=== PATIENT | female | born 1940 | race Caucasian/White ===

== ENCOUNTER 2019-06-10 05:46 | Inpatient (IN) ==
[2019-06-10] MEDS ORDERED: VANCOMYCIN 1,000 MG VIAL ONE (05:55)
[2019-06-10] MEDS ORDERED: ceFAZolin 1,000 MG VIAL ONE (05:55)
[2019-06-10] MEDS ORDERED: FAMOTIDINE 20 MG TABLET PO ONE (06:00)
[2019-06-10] MEDS ORDERED: VANCOMYCIN INJ 1,000 MG in SODIUM CHLORIDE 0.9% 250 ML IV ONE (06:00)
[2019-06-10] MEDS ORDERED: ceFAZolin 2,000 MG in SYRINGE 1 EACH IV ONE (06:00)
[2019-06-10] MEDS ORDERED: LACTATED RINGERS 1,000 ML IV SCH (06:25)
[2019-06-10] MEDS ORDERED: EPINEPHrine 1 MG/ML VIAL ONE (06:35)
[2019-06-10] MEDS ORDERED: BUPIVACAINE 0.5% 50 ML VIAL ONE (06:35)
[2019-06-10] MEDS ORDERED: MIDAZOLAM 2 MG/2 ML VIAL ONE (06:35)
[2019-06-10] MEDS ORDERED: DEXAMETHASONE 4 MG/1 ML VIAL ONE (06:35)
[2019-06-10] MEDS ORDERED: fentaNYL 100 MCG/2 ML VIAL ONE (06:35)
[2019-06-10] MEDS ORDERED: PROPOFOL 500 MG/50 ML BOTTLE IV ONE (06:36)
[2019-06-10] MEDS ORDERED: MORPHINE 10 MG/10 ML VIAL ONE (06:36)
[2019-06-10] MEDS ORDERED: BACITRACIN OINT 0.9 GM PACK TOP ONE (06:36)
[2019-06-10] MEDS ORDERED: TRANEXAMIC ACID 1,000 MG/10 ML VIAL ONE (06:36)
[2019-06-10] MEDS ORDERED: oxyCODONE IR 5 MG TABLET PO PRN ×2 (08:33)
[2019-06-10] MEDS ORDERED: ONDANSETRON 4 MG/2 ML VIAL IV PRN (08:33)
[2019-06-10] MEDS ORDERED: MORPHINE 4 MG/1 ML VIAL IV PRN (08:33)
[2019-06-10] MEDS ORDERED: diphenhydrAMINE CAP 25 MG CAPSULE PO PRN (08:33)
[2019-06-10] MEDS ORDERED: ZALEPLON 5 MG CAPSULE PO PRN (08:33)
[2019-06-10] MEDS ORDERED: MAGNESIUM HYDROXIDE SUSP 30 ML UDCUP PO PRN (08:33)
[2019-06-10] MEDS ORDERED: BUPIVACAINE SPINAL 0.75% 2 ML AMP SPINAL ONE (09:04)
[2019-06-10] MEDS ORDERED: LACTATED RINGERS 1,000 ML IV ONE (09:40)
[2019-06-10 11:01] LABS: Basophils % 0.2 % (0.0-0.8); Eosinophils % 0.3 % (0.00-10.9); Hemoglobin 13.3 GM/DL (12.0-16.0); Immature Granulocytes % 0.3 %; Immature Granulocytes Absolute 0.03 #; Lymphocytes # 1.1 10*3/uL (1.4-4.0); Lymphocytes % 12.1 % (21.3-54.2); Mean Corpuscular HGB Conc 34.1 GM/DL (32-36); Mean Corpuscular Volume 93.1 FL (87-102); Mean Platelet Volume 11.2 FL (9.6-12.0); Neutrophils % 85.1 % (38.7-73.9); Platelet Count 202 T/CUMM (130-400); Red Blood Count 4.19 MC/CUMM (3.8-5.5); Red Cell Distribution Width 12.8 % (9.3-17.3); White Blood Count 8.8 T/CUMM (4-12)
[2019-06-10] MEDS: KETOROLAC 15 MG/1 ML VIAL IV SCH ×3 (11:04→22:57)
[2019-06-10 11:33] LABS: Calcium 8.4 MG/DL (8.5-10.1); Osmolality,Calculated 277.5 MOS/KG (273-304)
[2019-06-10] MEDS: LACTATED RINGERS 1,000 ML IV SCH ×2 (11:36→23:14)
[2019-06-10] MEDS: ESTRADIOL 1 MG TABLET PO SCH (12:57)
[2019-06-10] MEDS: DOCUSATE SODIUM 100 MG CAPSULE PO SCH ×2 (12:58→21:28)
[2019-06-10] MEDS: PANTOPRAZOLE 40 MG TABLET PO SCH (12:59)
[2019-06-10] MEDS: ACETAMINOPHEN 500 MG TABLET PO SCH ×2 (12:59→22:15)
[2019-06-10] MEDS: MORPHINE 4 MG/1 ML VIAL IV PRN (13:00)
[2019-06-10] MEDS: ceFAZolin 2,000 MG in SYRINGE 1 EACH IV SCH ×2 (13:25→22:52)
[2019-06-10] MEDS: SIMVASTATIN 20 MG TABLET PO SCH (21:28)
[2019-06-10] MEDS: FONDAPARINUX 2.5 MG/0.5 ML SYRINGE SUBCUT SCH (21:29)
[2019-06-11] MEDS: KETOROLAC 15 MG/1 ML VIAL IV SCH ×2 (05:26→07:25)
[2019-06-11 05:53] LABS: Basophils % 0.1 % (0.0-0.8); Eosinophils % 0.2 % (0.00-10.9); Hematocrit 30.3 VOL% (35.7-47.0); Hemoglobin 10.3 GM/DL (12.0-16.0); Immature Granulocytes % 0.4 %; Immature Granulocytes Absolute 0.05 #; Lymphocytes # 1.8 10*3/uL (1.4-4.0); Lymphocytes % 14.3 % (21.3-54.2); Mean Corpuscular Volume 92.9 FL (87-102); Mean Platelet Volume 11.8 FL (9.6-12.0); Monocytes % 7.2 % (1.7-12.7); Neutrophils % 77.8 % (38.7-73.9); Platelet Count 181 T/CUMM (130-400); Red Blood Count 3.26 MC/CUMM (3.8-5.5); Red Cell Distribution Width 12.6 % (9.3-17.3); White Blood Count 12.3 T/CUMM (4-12)
[2019-06-11 06:09] LABS: Calcium 7.8 MG/DL (8.5-10.1); Osmolality,Calculated 275.8 MOS/KG (273-304)
[2019-06-11] MEDS: ACETAMINOPHEN 500 MG TABLET PO SCH (07:24)
[2019-06-11] MEDS: hydroCHLOROthiazide 12.5 MG CAPSULE PO SCH (09:00)
[2019-06-11] MEDS: amLODIPine 5 MG TABLET PO SCH (09:00)
[2019-06-11] MEDS: PANTOPRAZOLE 40 MG TABLET PO SCH (09:00)
[2019-06-11] MEDS: ESTRADIOL 1 MG TABLET PO SCH (09:00)
[2019-06-11] MEDS: DOCUSATE SODIUM 100 MG CAPSULE PO SCH ×2 (09:01→21:01)
[2019-06-11] MEDS: MORPHINE 4 MG/1 ML VIAL IV PRN ×2 (09:01→13:40)
[2019-06-11] MEDS: LOSARTAN 50 MG TABLET PO SCH (09:02)
[2019-06-11] MEDS: CELECOXIB 200 MG CAPSULE PO SCH (15:33)
[2019-06-11] MEDS: NF- (Mirabegron [Myrbetriq] 50 MG) PO SCH (18:18)
[2019-06-11] MEDS: FONDAPARINUX 2.5 MG/0.5 ML SYRINGE SUBCUT SCH (21:01)
[2019-06-11] MEDS: SIMVASTATIN 20 MG TABLET PO SCH (21:01)
[2019-06-11] MEDS: LACTATED RINGERS 1,000 ML IV SCH (22:45)
[2019-06-12 07:06] LABS: Basophils # 0.1 10*3/uL (0.0-0.2); Basophils % 0.8 % (0.0-0.8); Eosinophils # 0.1 10*3/uL (0.0-0.87); Eosinophils % 1.5 % (0.00-10.9); Hemoglobin 9.7 GM/DL (12.0-16.0); Immature Granulocytes % 0.2 %; Immature Granulocytes Absolute 0.02 #; Lymphocytes # 2.7 10*3/uL (1.4-4.0); Lymphocytes % 31.5 % (21.3-54.2); Mean Corpuscular HGB Conc 32.3 GM/DL (32-36); Mean Corpuscular Volume 95.8 FL (87-102); Mean Platelet Volume 11.8 FL (9.6-12.0); Monocytes % 10.5 % (1.7-12.7); Neutrophils % 55.5 % (38.7-73.9); Platelet Count 157 T/CUMM (130-400); Red Blood Count 3.13 MC/CUMM (3.8-5.5); White Blood Count 8.7 T/CUMM (4-12)
[2019-06-12] MEDS: hydroCHLOROthiazide 12.5 MG CAPSULE PO SCH (08:33)
[2019-06-12] MEDS: CELECOXIB 200 MG CAPSULE PO SCH (08:33)
[2019-06-12] MEDS: PANTOPRAZOLE 40 MG TABLET PO SCH (08:33)
[2019-06-12] MEDS: LOSARTAN 50 MG TABLET PO SCH (08:33)
[2019-06-12] MEDS: DOCUSATE SODIUM 100 MG CAPSULE PO SCH (08:33)
[2019-06-12] MEDS: ESTRADIOL 1 MG TABLET PO SCH (08:33)
[2019-06-12] MEDS: amLODIPine 5 MG TABLET PO SCH (08:33)
[2019-06-12] MEDS: NF- (Mirabegron [Myrbetriq] 50 MG) PO SCH (08:34)
[2019-06-12 11:37] VITALS: BP 117/66
== END 2019-06-12 16:30 | DRG 470 ==
LOC: N.SDSINP 05:46 → N.OR 05:46 → N.3E 08:33
PROVIDERS: ADMIT Orthopaedic Surgery; ATTEND Orthopaedic Surgery